=== PATIENT | male | born 1950 | race Caucasian/White ===

== ENCOUNTER 2019-03-03 15:35 | Emergency (ER) | payer OTHER ==
[~2019-03-03] VITALS: Ht 175.3 cm; Wt 99.8 kg
[~2019-03-03 15:35] MED LIST: ASPIRIN81 M2 PO; BACTROBAN NASAL1 GM NASAL; COLACE100 MG PO; COUMADIN 2.5MG2.5 M1 PO; COZAAR 50 MG TA50 M1 PO; EFFIENT10 MG PO; FISH OIL 1,0001 EAC5 PO; GLIPIZIDE 5 MG T5 MG PO; GLUCOPHAGE500 MG PO; HYDROCODON-ACE1 EAC7 PO; IRON325 PO; MOM PO; MULTIVITAMINS1 EAC7 PO; PHISOHEX148 ML TOP; ROXICET 5-3251 EACH PO; SIMVASTATIN40 MG PO; TOPROL XL25 MG PO; VITAMIN D1000 UNI1 PO
[2019-03-03] MEDS ORDERED: CEPHALEXIN500 MG PO (18:50)
[2019-03-03 19:14] VITALS: BP 165/82
== END 2019-03-03 19:22 | disposition home or self-care (01) ==
LOC: ER 15:35
DX: S92.532A Displaced fracture of distal phalanx of left lesser toe(s), initial encounter for closed fracture (principal); I10 Essential (primary) hypertension; E11.9 Type 2 diabetes mellitus without complications; E78.5 Hyperlipidemia, unspecified; G47.30 Sleep apnea, unspecified; Z87.442 Personal history of urinary calculi; X58.XXXA Exposure to other specified factors, initial encounter; Y93.9 Activity, unspecified; Y92.89 Other specified places as the place of occurrence of the external cause; Y99.8 Other external cause status

== ENCOUNTER → 2020-04-23 | Outpatient (CLI) | payer BC, OTHER ==
[~2020-04-23] MED LIST changes: +CEPHALEXIN500 MG PO
== END ==
LOC: SJCVCIMAG 08:47
PROVIDERS: ATTEND Internal Medicine Cardiovascular Disease
DX: I10 Essential (primary) hypertension (principal); I25.2 Old myocardial infarction; E78.5 Hyperlipidemia, unspecified; I25.10 Atherosclerotic heart disease of native coronary artery without angina pectoris; E78.00 Pure hypercholesterolemia, unspecified; E11.9 Type 2 diabetes mellitus without complications; Z72.89 Other problems related to lifestyle; Z79.82 Long term (current) use of aspirin; Z79.84 Long term (current) use of oral hypoglycemic drugs; Z79.899 Other long term (current) drug therapy

== ENCOUNTER → 2021-04-22 | Outpatient (CLI) | payer OTHER | LOC: SJCVC 11:23 | PROVIDERS: ATTEND Internal Medicine Cardiovascular Disease | DX: I44.0 Atrioventricular block, first degree (principal); I25.10 Atherosclerotic heart disease of native coronary artery without angina pectoris; I10 Essential (primary) hypertension; E78.00 Pure hypercholesterolemia, unspecified; E11.9 Type 2 diabetes mellitus without complications; E78.5 Hyperlipidemia, unspecified; Z79.82 Long term (current) use of aspirin; Z79.84 Long term (current) use of oral hypoglycemic drugs; Z79.899 Other long term (current) drug therapy; Z72.89 Other problems related to lifestyle; Z82.49 Family history of ischemic heart disease and other diseases of the circulatory system; Z95.1 Presence of aortocoronary bypass graft; Z95.818 Presence of other cardiac implants and grafts ==